=== PATIENT | female | born 1975 | race Caucasian/White ===

== ENCOUNTER 2017-03-19 05:24 | Outpatient (CLI) | payer MEDICAID ==
[~2017-03-19] VITALS: Ht 182.9 cm; Wt 127.5 kg
[~2017-03-19 05:24] MED LIST: ACHYD1T PO; AMOX500C2 PO; DCS100C PO; GLYB2.5T4 PO; IBP800T PO; LBT200T PO; NITR100C3 PO; PREN1TAB39 PO
[2017-03-19 05:27] VITALS: BP 163/78
[2017-03-19] MEDS ORDERED: METF500T4 PO ×2 (05:52)
[2017-03-19] MEDS ORDERED: METH250T PO ×2 (05:53)
[2017-03-19] MEDS ORDERED: PRD10T PO (07:24)
--- NOTE | 2017-03-20 12:18 | Physician Query-Final Dx ---
ARYAN GODINEZ 03/20/17 1218: Clinic Account Progress/Dx Physician Query: Please give diagnosis Date of Service Mar 19, 2017 at 05:24 CHERELLE SCRUGGS MD 03/21/17 0656: Clinic Account Progress/Dx DIAGNOSIS: Diagnosis hypersensitivity dermatitis ARYAN GODINEZ Mar 20, 2017 12:18 CHERELLE SCRUGGS MD Mar 21, 2017 06:56
[2017-03-20] MEDS ORDERED: PRD20T PO (12:59)
== END 2017-03-19 06:04 | disposition home or self-care (01) ==
LOC: WSo 05:24 → LDRP 05:26 → WSo 06:04
PROVIDERS: ATTEND Obstetrics & Gynecology
DX: O99.89 Other specified diseases and conditions complicating pregnancy, childbirth and the puerperium (principal); L30.9 Dermatitis, unspecified; Z3A.19 19 weeks gestation of pregnancy
CPT/HCPCS: 99212

== ENCOUNTER 2017-03-19 06:04 | Emergency (ER) | payer MEDICAID ==
[~2017-03-19] VITALS: Ht 182.9 cm; Wt 127.0 kg
[~2017-03-19 06:04] MED LIST changes: +METF500T4 PO; +METH250T PO
[2017-03-19] MEDS ORDERED: methylPREDNISolone 125 MG (Solu-MEDROL) VIAL IVP ONE (06:30)
[2017-03-19] MEDS ORDERED: diphenhydrAMINE 50 MG/ML INJ (BENADRYL) IVP ONE (06:30)
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
[2017-03-19 06:43] LABS: BASOPHILS % (AUTO) 0 % (0-10); EOSINOPHILS # (AUTO) 0.2 10^3/uL (0.0-0.3); EOSINOPHILS % (AUTO) 1 % (0-10); LYMPHOCYTES # (AUTO) 0.8 X 10^3 (1.0-4.0); LYMPHOCYTES % (AUTO) 5 % (12-44); MEAN CORPUSCULAR HEMOGLOBIN 23 PG (25-34); MEAN CORPUSCULAR HGB CONC 32 G/DL (32-36); MEAN CORPUSCULAR VOLUME 72 FL (80-99); MEAN PLATELET VOLUME 10.5 FL (7.4-10.4); MONOCYTES # (AUTO) 0.3 X 10^3 (0.0-1.0); MONOCYTES % (AUTO) 2 % (0-12); NEUTROPHILS # (AUTO) 14.3 X 10^3 (1.8-7.8); NEUTROPHILS % (AUTO) 92 % (42-75); PLATELET COUNT 472 10^3/uL (130-400); RED BLOOD COUNT 4.82 10^6/uL (4.35-5.85); RED CELL DISTRIBUTION WIDTH 17.5 % (10.0-14.5); WHITE BLOOD COUNT 15.6 10^3/uL (4.3-11.0)
[2017-03-19 07:11] LABS: ALANINE AMINOTRANSFERASE 13 U/L (0-55); ALBUMIN 3.2 GM/DL (3.2-4.5); ANION GAP 13 MMOL/L (5-14); ASPARTATE AMINO TRANSFERASE 15 U/L (5-34); BILIRUBIN,TOTAL 0.5 MG/DL (0.1-1.0); BLOOD UREA NITROGEN 9 MG/DL (7-18); BUN/CREATININE RATIO 12 (0-20); CALCIUM 8.4 MG/DL (8.5-10.1); CARBON DIOXIDE 18 MMOL/L (21-32); CHLORIDE 104 MMOL/L (98-107); CREATININE SERUM 0.77 MG/DL (0.60-1.30); GFR ESTIMATED > 60; GLUCOSE 158 MG/DL (70-105); SODIUM 135 MMOL/L (135-145); TOTAL PROTEIN 6.8 GM/DL (6.4-8.2)
[2017-03-19 07:24] LABS: BAND NEUTROPHILS 3 %; BASOPHILS % (MANUAL) 0 %; EOSINOPHILS % (MANUAL) 2 %; LYMPHOCYTES % (MANUAL) 6 %; NEUTROPHILS % (MANUAL) 88 %
[2017-03-19] MEDS ORDERED: PRD10T PO (07:24)
[2017-03-19 07:25] LABS: ANISOCYTOSIS SLIGHT; MICROCYTOSIS SLIGHT
[2017-03-19 07:27] VITALS: BP 150/85
[2017-03-20] MEDS ORDERED: PRD20T PO (12:59)
== END 2017-03-19 07:33 | disposition home or self-care (01) ==
LOC: EDUNIT# 06:08 → ER 06:10
DX: O99.89 Other specified diseases and conditions complicating pregnancy, childbirth and the puerperium (principal); R21 Rash and other nonspecific skin eruption; O13.2 Gestational [pregnancy-induced] hypertension without significant proteinuria, second trimester; O24.912 Unspecified diabetes mellitus in pregnancy, second trimester; Z3A.19 19 weeks gestation of pregnancy; Z79.84 Long term (current) use of oral hypoglycemic drugs
CPT/HCPCS: 36415; 80053; 85007; 85027; 96374; 96375

== ENCOUNTER 2017-03-20 10:31 | Emergency (ER) | payer MEDICAID ==
[~2017-03-20] VITALS: Ht 182.9 cm; Wt 127.1 kg
[~2017-03-20 10:31] MED LIST changes: +PRD10T PO
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
[2017-03-20] MEDS ORDERED: PRD20T PO (12:59)
[2017-03-20 13:05] VITALS: BP 145/80
== END 2017-03-20 13:05 | disposition home or self-care (01) ==
LOC: EDUNIT# 10:31 → ER 10:34
DX: O9A.212 Injury, poisoning and certain other consequences of external causes complicating pregnancy, second trimester (principal); S40.861A Insect bite (nonvenomous) of right upper arm, initial encounter; Z3A.20 20 weeks gestation of pregnancy; W57.XXXA Bitten or stung by nonvenomous insect and other nonvenomous arthropods, initial encounter
CPT/HCPCS: 87070; 87205; 99282

== ENCOUNTER 2017-04-22 17:44 | Inpatient (IN) | payer MEDICAID ==
[~2017-04-22] VITALS: Ht 182.9 cm; Wt 128.0 kg
[2017-04-22] VITALS (15 sets, daily range): BP systolic 155–230; BP diastolic 79–113
[~2017-04-22 17:44] MED LIST changes: +PRD20T PO
[2017-04-22] MEDS ORDERED: LABETALOL 200 MG (NORMODYNE) TAB PO NR (18:00)
[2017-04-22 18:27] LABS: BASOPHILS # (AUTO) 0.1 10^3/uL (0.0-0.1); BASOPHILS % (AUTO) 0 % (0-10); EOSINOPHILS # (AUTO) 0.1 10^3/uL (0.0-0.3); EOSINOPHILS % (AUTO) 1 % (0-10); LYMPHOCYTES # (AUTO) 2.1 X 10^3 (1.0-4.0); LYMPHOCYTES % (AUTO) 16 % (12-44); MEAN CORPUSCULAR HEMOGLOBIN 24 PG (25-34); MEAN CORPUSCULAR HGB CONC 32 G/DL (32-36); MEAN CORPUSCULAR VOLUME 74 FL (80-99); MEAN PLATELET VOLUME 10.6 FL (7.4-10.4); MONOCYTES # (AUTO) 0.9 X 10^3 (0.0-1.0); MONOCYTES % (AUTO) 6 % (0-12); NEUTROPHILS # (AUTO) 10.3 X 10^3 (1.8-7.8); NEUTROPHILS % (AUTO) 77 % (42-75); PLATELET COUNT 421 10^3/uL (130-400); RED CELL DISTRIBUTION WIDTH 18.1 % (10.0-14.5); WHITE BLOOD COUNT 13.4 10^3/uL (4.3-11.0)
[2017-04-22 18:39] LABS: PROTEIN/CREATININE RATIO 0.12
[2017-04-22 18:44] LABS: ALANINE AMINOTRANSFERASE 11 U/L (0-55); ANION GAP 9 MMOL/L (5-14); ASPARTATE AMINO TRANSFERASE 13 U/L (5-34); BILIRUBIN,TOTAL 0.3 MG/DL (0.1-1.0); BLOOD UREA NITROGEN 12 MG/DL (7-18); BUN/CREATININE RATIO 16; CALCIUM 9.1 MG/DL (8.5-10.1); CARBON DIOXIDE 22 MMOL/L (21-32); CHLORIDE 104 MMOL/L (98-107); CREATININE SERUM 0.75 MG/DL (0.60-1.30); GFR ESTIMATED > 60; GLUCOSE 100 MG/DL (70-105); LACTATE DEHYDROGENASE 134 U/L (125-220); SODIUM 135 MMOL/L (135-145); TOTAL PROTEIN 6.2 GM/DL (6.4-8.2); URIC ACID 4.6 MG/DL (2.6-7.2)
[2017-04-22] MEDS ORDERED: LABETALOL HCL 20 MG/4 ML VIAL IV ONE (19:00)
[2017-04-22] MEDS ORDERED: LABE100T2 PO (19:12)
[2017-04-22] MEDS ORDERED: METF500T4 PO (19:12)
[2017-04-22] MEDS ORDERED: LABETALOL IV SCH ×2 (20:00→20:30)
[2017-04-22] MEDS ORDERED: D5W IV SCH ×2 (20:00→20:30)
[2017-04-22] MEDS ORDERED: CATHETER FLUSH 10 ML SYR IV PRN (20:30)
[2017-04-22] MEDS: CATHETER FLUSH 10 ML SYR IV SCH (20:36)
[2017-04-22] MEDS ORDERED: hydrALAZINE (APESOLINE) 20 MG/ML VIAL ONE (21:26)
[2017-04-22] MEDS ORDERED: hydrALAZINE (APESOLINE) 20 MG/ML VIAL IV ONE (21:45)
--- NOTE | 2017-04-22 22:10 | History & Physical ---
History and Physical Date Seen by Provider: Apr 22, 2017 Time Seen by Provider: 21:56 this patient is a 41-year-old A1 LC 8 white female with an EDC of August 07 2017. she has a history of hypertension in the past as well as a history of preeclampsia with prior pregnancies. She has had 6 C-sections and total her is complicated by obesity as well as advanced maternal age as well as diabetes mellitus. She had an abnormal tetra test showing an increased DSR of 1 in 30. Amniocentesis performed on March 12, 2017 was normal. This patient has had elevation of her blood pressure in the past and began to feel that her blood pressure was elevated again. She recently bought a wrist blood pressure and call my office and reported a blood pressure of over 200 on systolic and over 100 diastolic. She was directed to labor and delivery. Blood pressure today or showed a markedly elevation. We had initially prescribed Aldomet for blood pressure control that seemed to have good effect however she complained of her reaction to the Aldomet and was changed into labetalol. Blood pressure has not been quite as effective with labetalol. I saw this patient on April 17, 2017 in my clinic. Her blood pressure there was 162/105. Her dose of labetalol at that point was 100 mg twice a day. The patient had indicated to me at that point that she sometimes took her blood pressure medication and sometimes she did not. When she felt that her blood pressure was not a problem for her she did not take her blood pressure medication. She did not approve that the dose of blood pressure medication that I had recommended and had been adjusting her own medication. At the point of this admission I am not sure what dose of blood pressure medications/ labetalol the patient has actually been taking and how often she has been taking it. It elevation of her blood pressure I requested a consult with cardiology for evaluation and management of her blood pressure. When apprised of the blood pressure the weeder thinner suggested transfer to the ICU for immediate attention to her markedly elevated blood pressure. The patient is currently 24 weeks and 5 days into her gestation. She has no specific obstetric problems at this moment other than her medical problems. In regard to her blood sugars she test them on her own schedule sort of as she feels she needs to. I have asked that she check blood sugars at least 2 hours after meals. She indicates to me that she does that some time. She has been on metformin was initially started at 5 mg twice a day on March 18, 2017. By April 17, 2017 we have changed to 500 mg 3 times a day. This evening the patient reports to me that her blood sugars 2 hours after meals are running persistently at our round or less than 100. Currently the patient is an ICU bed 12 under the care of Dr. Rubio - 4 blood pressure management. The patient is alert and oriented 4 she is smiling and responsive. She understands that her blood pressure is quite problematic at the moment. She denies rupture membranes or bleeding. She denies contractions. She does feel baby moving. 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 Medications include metformin which she indicates to me that she is taking 3 times a day at 500 mg as directed. Past medical history, past surgical history, past obstetric history, family history, and social histories are per the antepartum record which is on file with the OB department HEENT exam is normal. Abdomen is gravid soft nontender. Extremities show no clubbing or cyanosis. There is some mild pretibial pitting edema. This is somewhat improved actually from her prior exam Pelvic exam is deferred Lab work is as follows Laboratory Tests Test 04/22/17 18:15 04/22/17 18:19 Range/Units Urine Protein 32 H 6-12 MG/DL Urine Creatinine 269 H 30-125 MG/DL Urine Protein/Creatinine Ratio 0.12 White Blood Count 13.4 H 4.3-11.0 10^3/uL Red Blood Count 4.40 4.35-5.85 10^6/uL Hemoglobin 10.4 L 11.5-16.0 G/DL Hematocrit 33 L 35-52 % Mean Corpuscular Volume 74 L 80-99 FL Mean Corpuscular Hemoglobin 24 L 25-34 PG Mean Corpuscular Hemoglobin Concent 32 32-36 G/DL Red Cell Distribution Width 18.1 H 10.0-14.5 % Platelet Count 421 H 130-400 10^3/uL Mean Platelet Volume 10.6 H 7.4-10.4 FL Neutrophils (%) (Auto) 77 H 42-75 % Lymphocytes (%) (Auto) 16 12-44 % Monocytes (%) (Auto) 6 0-12 % Eosinophils (%) (Auto) 1 0-10 % Basophils (%) (Auto) 0 0-10 % Neutrophils # (Auto) 10.3 H 1.8-7.8 X 10^3 Lymphocytes # (Auto) 2.1 1.0-4.0 X 10^3 Monocytes # (Auto) 0.9 0.0-1.0 X 10^3 Eosinophils # (Auto) 0.1 0.0-0.3 10^3/uL Basophils # (Auto) 0.1 0.0-0.1 10^3/uL Sodium Level 135 135-145 MMOL/L Potassium Level 4.0 3.6-5.0 MMOL/L Chloride Level 104 98-107 MMOL/L Carbon Dioxide Level 22 21-32 MMOL/L Anion Gap 9 5-14 MMOL/L Blood Urea Nitrogen 12 7-18 MG/DL Creatinine 0.75 0.60-1.30 MG/DL Estimat Glomerular Filtration Rate > 60 BUN/Creatinine Ratio 16 Glucose Level 100 70-105 MG/DL Uric Acid 4.6 2.6-7.2 MG/DL Calcium Level 9.1 8.5-10.1 MG/DL Total Bilirubin 0.3 0.1-1.0 MG/DL Aspartate Amino Transf (AST/SGOT) 13 5-34 U/L Alanine Aminotransferase (ALT/SGPT) 11 0-55 U/L Alkaline Phosphatase 69 40-136 U/L Lactate Dehydrogenase 134 125-220 U/L Total Protein 6.2 L 6.4-8.2 GM/DL Albumin 3.0 L 3.2-4.5 GM/DL patient's lab work is reviewed and there is nothing that is of immediate concern patient had an NST and monitoring performed prior to transfer to labor and delivery and had had a reassuring tracing Vital Signs Date Time Temp Pulse Resp B/P (MAP) Pulse Ox O2 Delivery O2 Flow Rate FiO2 04/22/17 19:17 18 217/100 Room Air 04/22/17 18:56 18 230/106 Room Air 04/22/17 18:40 18 215/102 Room Air 04/22/17 17:50 98.6 63 18 214/98 Room Air Blood pressures are markedly elevated as noted here. - Dr. Rubio is aware and is providing medical management at this point assessment and plan 24-5/7 weeks gestation in a patient with uncontrolled hypertension and an uncertain degree of compliance with her prescribed antihypertensive medication - now under the care of our weeder thinner, Dr. Rubio , to whom I will defer all blood pressure management issues diabetes mellitus versus gestational diabetes. Patient blood sugars now appear to be significantly improved on the current regimen of metformin 500 mg 3 times a day. I would continue that medication. I would continue her regimen of fingerstick blood sugars. I would continue her diabetic diet. Patient has an unexplained abnormal tetra test and we will consult Dr. Pineda with whom this patient is already acquainted for evaluation and recommendations on management and delivery timing that can be accomplished as outpatient after discharge from [facility]. Patient knows she has an increased risk for complications specifically in regard to the abnormal unexplained tetra test. However her wrist with fairly markedly elevated due to her advanced maternal age, her diabetes, and her blood pressure. I will follow along now as Dr. Rubio effects improvement in her blood pressure. From an OB perspective I would continue the patient's diet as per her current diabetic regimen. As well as her metformin. I will continue her care and seek the assistance of Dr. Pineda. I am available if there are any questions or issues from an OB concern. We will monitor this patient's fetus daily I appreciate the assistance of Dr. Rubio in the management of this patient Uncontrolled hypertension Allergies and Home Medications Allergies Coded Allergies: codeine (Unverified Adverse Reaction, Mild, Headache, 05/21/07) Home Medications Labetalol HCl 100 Mg Tablet, 100 MG PO TID, (Reported) Metformin HCl 500 Mg Tablet, 500 MG PO TID, (Reported) CHERELLE SCRUGGS MD Apr 22, 2017 22:10
[2017-04-22] MEDS ORDERED: CALCIUM CARBONATE 500 MG (TUMS) TAB.CHEW PO PRN (22:30)
[2017-04-23] VITALS (23 sets, daily range): BP systolic 125–190; BP diastolic 72–112
[2017-04-23] MEDS: hydrALAZINE (APESOLINE) 20 MG/ML VIAL IV PRN ×2 (02:52→11:34)
[2017-04-23] MEDS ORDERED: ONDANSETRON 4 MG/2 ML (SDV) Z0FRAN ONE (03:33)
[2017-04-23] MEDS ORDERED: ACETAMINOPHEN 325 MG TABLET/CAPLET (TYLENOL) ONE (03:33)
[2017-04-23 04:06] LABS: BASOPHILS # (AUTO) 0.1 10^3/uL (0.0-0.1); BASOPHILS % (AUTO) 1 % (0-10); EOSINOPHILS # (AUTO) 0.1 10^3/uL (0.0-0.3); EOSINOPHILS % (AUTO) 1 % (0-10); LYMPHOCYTES # (AUTO) 2.5 X 10^3 (1.0-4.0); LYMPHOCYTES % (AUTO) 20 % (12-44); MEAN CORPUSCULAR HEMOGLOBIN 24 PG (25-34); MEAN CORPUSCULAR HGB CONC 32 G/DL (32-36); MEAN CORPUSCULAR VOLUME 74 FL (80-99); MEAN PLATELET VOLUME 10.8 FL (7.4-10.4); MONOCYTES # (AUTO) 0.7 X 10^3 (0.0-1.0); MONOCYTES % (AUTO) 5 % (0-12); NEUTROPHILS # (AUTO) 9.2 X 10^3 (1.8-7.8); NEUTROPHILS % (AUTO) 74 % (42-75); PLATELET COUNT 449 10^3/uL (130-400); RED BLOOD COUNT 4.72 10^6/uL (4.35-5.85); RED CELL DISTRIBUTION WIDTH 18.3 % (10.0-14.5); WHITE BLOOD COUNT 12.5 10^3/uL (4.3-11.0)
[2017-04-23 04:27] LABS: ANION GAP 14 MMOL/L (5-14); BLOOD UREA NITROGEN 11 MG/DL (7-18); BUN/CREATININE RATIO 14; CALCIUM 8.6 MG/DL (8.5-10.1); CARBON DIOXIDE 15 MMOL/L (21-32); CHLORIDE 104 MMOL/L (98-107); CREATININE SERUM 0.76 MG/DL (0.60-1.30); GFR ESTIMATED > 60; GLUCOSE 126 MG/DL (70-105); MAGNESIUM 1.4 MG/DL (1.8-2.4); PHOSPHORUS 3.8 MG/DL (2.3-4.7); POTASSIUM 3.9 MMOL/L (3.6-5.0); SODIUM 133 MMOL/L (135-145)
[2017-04-23] MEDS: MAGNESIUM 1 GM/100 ML IVPB 100 ML IV SCH ×3 (04:30→06:34)
[2017-04-23] MEDS: POTASSIUM CL 10MEQ/50ML IVPB 50 ML IV SCH (04:31)
[2017-04-23] MEDS: KCL 20 MEQ TAB (K-DUR) PO SCH (04:31)
[2017-04-23] MEDS: CATHETER FLUSH 10 ML SYR IV SCH ×3 (05:21→21:15)
--- NOTE | 2017-04-23 07:41 | Progress Note-Standard ---
Standard Progress Note Progress Notes/Assess & Plan Date Seen by Provider: Apr 23, 2017 Time Seen by Provider: 07:38 Progress/Assessment & Plan patient is without complaint. Her headache is improved with her blood pressures decreased. She denies nausea. Denies shortness of breath. Patient reports feeling baby moving and denies contractions. She denies ruptured membranes or bleeding. Vital Signs Date Time Temp Pulse Resp B/P (MAP) Pulse Ox O2 Delivery O2 Flow Rate FiO2 04/23/17 06:00 71 12 156/89 98 Room Air 04/23/17 05:00 65 19 172/92 97 Room Air 04/23/17 04:00 98.9 04/23/17 04:00 Room Air 04/23/17 04:00 76 20 147/87 97 Room Air 04/23/17 03:00 79 10 166/90 98 Room Air 04/23/17 02:00 60 21 144/75 97 Room Air 04/23/17 01:00 66 04/23/17 01:00 74 17 163/91 99 Room Air 04/23/17 00:00 74 14 145/88 98 04/23/17 00:00 Room Air 04/22/17 23:00 89 10 155/79 98 04/22/17 22:00 73 13 168/99 98 Room Air 04/22/17 21:45 77 24 159/88 98 Room Air 04/22/17 21:30 59 17 196/108 99 Room Air 04/22/17 21:15 62 11 202/107 98 Room Air 04/22/17 21:00 57 19 205/102 99 Room Air 04/22/17 20:45 58 10 201/104 99 Room Air 04/22/17 20:30 62 17 215/113 99 Room Air 04/22/17 20:15 56 8 213/108 100 Room Air 04/22/17 20:00 59 11 210/107 99 Room Air 04/22/17 20:00 Room Air 04/22/17 19:45 51 17 208/104 99 Room Air 04/22/17 19:17 18 217/100 Room Air 04/22/17 18:56 18 230/106 Room Air 04/22/17 18:40 18 215/102 Room Air 04/22/17 17:50 98.6 63 18 214/98 Room Air I & O 04/23/17 07:00 Intake Total 1400 ml Output Total 5 ml Balance 1395 ml pressures are still a bit labile but markedly improved. Abdomen is gravid soft nontender. Extremities show no clubbing or cyanosis. There is some pretibial pitting edema. There is no Homans sign. assessment and plan 24-6/7 weeks' gestation with severe hypertension - pressures are improving with the current care. No specific obstetric problems at this time. continue current management CHERELLE SCRUGGS MD Apr 23, 2017 7:41 am
[2017-04-23] MEDS: ASPIRIN 81 MG CHEW (CHILDREN'S ASA) PO SCH (08:33)
[2017-04-23] MEDS: metFORMIN 500 MG (GLUCOPHAGE) TAB PO SCH ×3 (08:59→21:50)
[2017-04-23] MEDS: PRENATAL VITAMIN 1 EA TAB PO SCH (08:59)
[2017-04-23] MEDS ORDERED: LABETALOL 200 MG (NORMODYNE) TAB PO SCH (09:00)
--- NOTE | 2017-04-23 10:56 | Consultation-Cardiology ---
HPI-Cardiology Cardiology Consultation: Date of Consultation 04/23/17 Date of Admission Attending Physician Vipul Rubio MD Admitting Physician Blayne Rosenberg MD Consulting Physician Vipul RUBIO MD HPI: Time Seen by Provider: 09:30 Chief Complaint: Headache and elevated blood pressure This is a 41-year-old lady who is 24 weeks . She has previous history of gestational diabetes and hypertension during pregnancies. She was started on labetalol as an outpatient. However the patient was noncompliant with medications. She presented with systolic blood pressure of 215 mmHg. She was in initially admitted to the floor and by mouth labetalol was given. There was no significant change in blood pressure therefore was transferred to the ICU. She was complaining of headache. When I saw her in the morning she was not complaining of headache anymore. Review of Systems-Cardiology Review of Systems Constitutional: No As described under HPI, No no symptoms reported, No chills, No fever, No lightheadedness, No malaise, No tiredness, No weight loss, No weight gain, No other Eyes: No As described under HPI, No no symptoms reported, No blindness, No blurred vision, No contact lenses, No drainage, No decreased acuity, No foreign body sensation, No glasses, No inflammation, No pain, No photophobia, No previous injury, No shadows, No tunnel vision, No other, No vision change Ears/Nose/Throat: No As described under HPI, No no symptoms reported, No chronic hearing loss, No epistaxis, No ear discharge, No ear pain, No loose teeth, No mouth pain, No mouth swelling, No nasal drainage, No nose pain, No recent hearing loss, No throat pain, No throat swelling, No ulcerations, No other Respiratory: No no symptoms reported, No As described under HPI, No cough, No orthopnea, No shortness of breath, No SOB with excertion, No SOB at rest, No stridor, No wheezing, No other Cardiovascular: No no symptoms reported, No As described under HPI, No chest pain, No edema, No irregular heart rate, No lightheadedness, No palpitations, No syncope, No other Gastrointestinal: No no symptoms reported, No As described under HPI, No abdomen distended, No abdominal pain, No blood streaked bowels, No constipation , No diarrhea, No difficulty swallowing, No nausea, No poor appetite, No poor fluid intake, No rectal bleeding, No vomiting, No other, No nausea/vomiting/ diarrhea, No stool coloration changes Genitourinary: No no symptoms reported, No As described under HPI, No burning, No dysuria, No discharge, No frequency, No flank pain, No hematuria, No incontinence, No pain, No urgency, No other, No urine frequency changes, No urine coloration changes Expected Date of Delivery: Aug 07, 2017 Musculoskeletal: No no symptoms reported, No As describe under HPI, No back pain, No gout, No joint pain, No joint swelling, No muscle pain, No muscle stiffness, No neck pain, No other Skin: No no symptoms reported, No As described under HPI, No change in color, No change in hair/nails, No dryness, No lesions, No lumps, No rash, No other, No skin related problems, No ulcerations, No rash on exposed areas, No ulcerations on exposed areas Psychiatric/Neurological: headache Hematologic: No no symptoms reported, No As described under HPI, No anemia, No blood clots, No easy bleeding, No easy bruising, No swollen glands, No other, No bleeding abnormalities [id number] Hx Patient Social History 2nd Hand Smoke Exposure: No Recent Foreign Travel: No Recent Infectious Disease Expo: No Physical Abuse Screen: No Sexual Abuse: No Immunizations Up To Date Tetanus Booster (TDap): Less than 5yrs Past Medical History PMH As described under Assessment. Allergies and Home Medications Allergies Coded Allergies: codeine (Unverified Adverse Reaction, Mild, Headache, 05/21/07) Home Medications Labetalol HCl 100 Mg Tablet, 100 MG PO TID, (Reported) Metformin HCl 500 Mg Tablet, 500 MG PO TID, (Reported) Physical Exam-Cardiology Physical Exam Vital Signs/I&O Vital Sign - Last 12Hours 04/23/17 04/23/17 04/23/17 04/23/17 02:00 03:00 04:00 04:00 Pulse 60 79 76 Resp 21 10 20 B/P (MAP) 144/75 166/90 147/87 Pulse Ox 97 98 97 O2 Delivery Room Air Room Air Room Air Room Air 04/23/17 04/23/17 04/23/17 04/23/17 04:00 05:00 06:00 07:00 Temp 98.9 Pulse 65 71 68 Resp 19 12 B/P (MAP) 172/92 156/89 Pulse Ox 97 98 O2 Delivery Room Air Room Air 04/23/17 04/23/17 08:00 12:55 Temp 97.6 98.1 Capillary Refill : Constitutional: No appears stated age, No AAO x 3, No apparent distress, No PERRL, No well-developed, No well-nourished, No other HEENT: No PERRL, No normal ENT inspection, No TMs normal, No pharynx normal, No scleral icterus (R), No scleral icterus (L), No pale conjunctivae (R), No pale conjunctivae (L), No photophobia, No TM abnormal (R), No TM abnormal (L), No pharyngeal erythema, No tonsillar exudate, No other, No discharge, No EOMI, No hearing is well preserved, No hard of hearing, No oral hygience is good, No ulceration, No xanthelasmas are seen Neck: No non-tender, No full range of motion, No supple, No normal inspection, No carotid bruit, No limited range of motion, No lymphadenopathy (R), No lymphadenopathy (L), No tender lateral, No tender midline, No thyromegaly, No other, No carotid pulses are 2 + bilaterally, No with good upstrokes Respiratory: No accessory muscle use, No respiratory distress, No chest tender , No chest expansion is symmetric, No chest is bilaterally symmetric, No lungs clear to percussion, No lungs clear to auscultation, No crackles, No rhonchi, No rales, No stridor, No wheezing, No pleural rub, No other Cardiovascular: No regular rate-rhythm, No irregularly irregular, No extra beats, No parasternal heave is noted, No JVD, No edema, No bradycardia, No tachycardia, No point of maximal impulse, No cardiac thrills are palpable, No S1 and S2, No gallop/S3, No gallop/S4, No diastolic murmur, No systolic murmur, No friction rub, No click, No other Gastrointestinal: No tender, No soft, No round, No distended, No pulsatile mass , No organomegaly, No guarding, No rebound, No tenderness, No hernia, No mass, No audible bowel sounds, No abnormal bowel sounds, No abdominal bruits, No spleenomegaly, No other Rectal: deferred Extremities: No clubbing, No cyanosis, No significant edema Neurologic/Psychiatric: alert, oriented x 3, power is 5/5 both on sides Skin: No normal color, No warm/dry, No cyanosis, No cool, No diaphoresis, No damp, No ecchymosis, No jaundice, No mottled, No pallor, No rash, No tattoos/ piercings, No ulcerations, No rash on exposed areas, No ulcerations on exposed areas, No other Data Review Labs Laboratory Tests 04/22/17 18:15: Urine Protein 32H, Urine Creatinine 269H, Urine Protein/Creatinine Ratio 0.12 04/22/17 18:19: White Blood Count 13.4H, Red Blood Count 4.40, Hemoglobin 10.4L, Hematocrit 33L , Mean Corpuscular Volume 74L, Mean Corpuscular Hemoglobin 24L, Mean Corpuscular Hemoglobin Concent 32, Red Cell Distribution Width 18.1H, Platelet Count 421H, Mean Platelet Volume 10.6H, Neutrophils (%) (Auto) 77H, Lymphocytes (%) (Auto) 16, Monocytes (%) (Auto) 6, Eosinophils (%) (Auto) 1, Basophils (%) ( Auto) 0, Neutrophils # (Auto) 10.3H, Lymphocytes # (Auto) 2.1, Monocytes # (Auto ) 0.9, Eosinophils # (Auto) 0.1, Basophils # (Auto) 0.1, Sodium Level 135, Potassium Level 4.0, Chloride Level 104, Carbon Dioxide Level 22, Anion Gap 9, Blood Urea Nitrogen 12, Creatinine 0.75, Estimat Glomerular Filtration Rate > 60 , BUN/Creatinine Ratio 16, Glucose Level 100, Uric Acid 4.6, Calcium Level 9.1, Total Bilirubin 0.3, Aspartate Amino Transf (AST/SGOT) 13, Alanine Aminotransferase (ALT/SGPT) 11, Alkaline Phosphatase 69, Lactate Dehydrogenase 134, Total Protein 6.2L, Albumin 3.0L 04/23/17 03:51: White Blood Count 12.5H, Red Blood Count 4.72, Hemoglobin 11.2L, Hematocrit 35, Mean Corpuscular Volume 74L, Mean Corpuscular Hemoglobin 24L, Mean Corpuscular Hemoglobin Concent 32, Red Cell Distribution Width 18.3H, Platelet Count 449H, Mean Platelet Volume 10.8H, Neutrophils (%) (Auto) 74, Lymphocytes (%) (Auto) 20 , Monocytes (%) (Auto) 5, Eosinophils (%) (Auto) 1, Basophils (%) (Auto) 1, Neutrophils # (Auto) 9.2H, Lymphocytes # (Auto) 2.5, Monocytes # (Auto) 0.7, Eosinophils # (Auto) 0.1, Basophils # (Auto) 0.1, Sodium Level 133L, Potassium Level 3.9, Chloride Level 104, Carbon Dioxide Level 15L, Anion Gap 14, Blood Urea Nitrogen 11, Creatinine 0.76, Estimat Glomerular Filtration Rate > 60, BUN/ Creatinine Ratio 14, Glucose Level 126H, Calcium Level 8.6, Phosphorus Level 3.8 , Magnesium Level 1.4L A/P-Cardiology Assessment/Admission Diagnosis Severe hypertension, Plan Overnight was started on labetalol infusion. Hydralazine boluses were given by eICU. Transition to by mouth labetalol this morning. We will avoid hydralazine. Increase labetalol to 400 mg 3 times a day. We may add Aldomet to the regimen. Compliance with medication was strongly recommended. Salt restriction was also recommended. She seems to have a good understanding of the risks associated with severe hypertension. Thank you for your consultation. Please call me if you have any questions. Hermann Rubio MD, FACP, FACC, FSCAI, FHRS, CCDS Interventional Cardiology Cardiac Electrophysiology Vascular Medicine and Endovascular Interventions Vipul RUBIO MD Apr 23, 2017 10:56
[2017-04-23] MEDS: LABETALOL 200 MG (NORMODYNE) TAB PO SCH ×3 (12:53→21:50)
[2017-04-23] MEDS: NIFEdipine ER 60 MG (PROCARDIA XL) TAB PO SCH (17:36)
[2017-04-23] MEDS ORDERED: LABETALOL 200 MG (NORMODYNE) TAB PO ONE (22:45)
--- NOTE | 2017-04-23 23:43 | Progress Note-Standard ---
Standard Progress Note Progress Notes/Assess & Plan Date Seen by Provider: Apr 23, 2017 Time Seen by Provider: 23:36 Progress/Assessment & Plan patient is without complaint. Her headache is improved with her blood pressures decreased. She denies nausea. Denies shortness of breath. Patient reports feeling baby moving and denies contractions. She denies ruptured membranes or bleeding. Vital Signs Date Time Temp Pulse Resp B/P (MAP) Pulse Ox O2 Delivery O2 Flow Rate FiO2 04/23/17 06:00 71 12 156/89 98 Room Air 04/23/17 05:00 65 19 172/92 97 Room Air 04/23/17 04:00 98.9 04/23/17 04:00 Room Air 04/23/17 04:00 76 20 147/87 97 Room Air 04/23/17 03:00 79 10 166/90 98 Room Air 04/23/17 02:00 60 21 144/75 97 Room Air 04/23/17 01:00 66 04/23/17 01:00 74 17 163/91 99 Room Air 04/23/17 00:00 74 14 145/88 98 04/23/17 00:00 Room Air 04/22/17 23:00 89 10 155/79 98 04/22/17 22:00 73 13 168/99 98 Room Air 04/22/17 21:45 77 24 159/88 98 Room Air 04/22/17 21:30 59 17 196/108 99 Room Air 04/22/17 21:15 62 11 202/107 98 Room Air 04/22/17 21:00 57 19 205/102 99 Room Air 04/22/17 20:45 58 10 201/104 99 Room Air 04/22/17 20:30 62 17 215/113 99 Room Air 04/22/17 20:15 56 8 213/108 100 Room Air 04/22/17 20:00 59 11 210/107 99 Room Air 04/22/17 20:00 Room Air 04/22/17 19:45 51 17 208/104 99 Room Air 04/22/17 19:17 18 217/100 Room Air 04/22/17 18:56 18 230/106 Room Air 04/22/17 18:40 18 215/102 Room Air 04/22/17 17:50 98.6 63 18 214/98 Room Air I & O 04/23/17 07:00 Intake Total 1400 ml Output Total 5 ml Balance 1395 ml pressures are still a bit labile but markedly improved. Abdomen is gravid soft nontender. Extremities show no clubbing or cyanosis. There is some pretibial pitting edema. There is no Homans sign. assessment and plan 24-6/7 weeks' gestation with severe hypertension - pressures are improving with the current care. No specific obstetric problems at this time. continue current management April 23, 2017 Patient complains of persistent but somewhat episodic headache. She denies ruptured membranes or bleeding. Complains of episodic gastritis/heartburn. She denies contractions. She expresses concern about having her blood pressure get to low with the medication she is being given. We had a lengthy discussion regarding blood pressure management the patient now does understand that the medication she received now in the form of labetalol is expected to have a control and affect her blood pressure over the next 6-8 hours rather than an immediate impact. She has received other medications during this hospitalization for a more prompt/immediate. When her blood pressures are in a more acceptable range as in the 140s to 160s over 90 to 110 she is not receiving the immediate acting blood pressure medicines. She still needs to maintain compliance with her ongoing daily antihypertensive medication in order to gain adequate control of her blood pressure. Again we discussed this issue at some length and in some detail. Vital Signs Date Time Temp Pulse Resp B/P (MAP) Pulse Ox O2 Delivery O2 Flow Rate FiO2 04/23/17 23:00 71 16 156/85 96 Room Air 04/23/17 22:00 80 30 131/72 96 Room Air 04/23/17 21:00 64 19 146/84 Room Air 04/23/17 20:00 Room Air 04/23/17 20:00 68 16 125/75 Room Air 04/23/17 19:00 75 12 132/77 Room Air 04/23/17 19:00 71 04/23/17 18:00 72 13 150/90 98 Room Air 04/23/17 17:00 73 18 163/94 96 Room Air 04/23/17 16:00 Room Air 04/23/17 16:00 55 16 171/92 97 Room Air 04/23/17 15:00 58 15 136/83 97 Room Air 04/23/17 14:00 69 18 155/85 97 Room Air 04/23/17 13:00 73 20 136/74 97 Room Air 04/23/17 13:00 74 04/23/17 12:55 98.1 04/23/17 12:00 Room Air 04/23/17 11:00 61 12 168/89 98 Room Air 04/23/17 10:00 63 7 190/109 99 Room Air 04/23/17 09:00 62 19 177/112 97 Room Air 04/23/17 08:00 64 11 147/81 98 Room Air 04/23/17 08:00 Room Air 04/23/17 08:00 97.6 04/23/17 07:00 63 20 155/86 96 Room Air 04/23/17 07:00 68 04/23/17 06:00 71 12 156/89 98 Room Air 04/23/17 05:00 65 19 172/92 97 Room Air 04/23/17 04:00 98.9 04/23/17 04:00 Room Air 04/23/17 04:00 76 20 147/87 97 Room Air 04/23/17 03:00 79 10 166/90 98 Room Air 04/23/17 02:00 60 21 144/75 97 Room Air 04/23/17 01:00 66 04/23/17 01:00 74 17 163/91 99 Room Air 04/23/17 00:00 74 14 145/88 98 04/23/17 00:00 Room Air I & O 04/23/17 07:00 Intake Total 1400 ml Output Total 5 ml Balance 1395 ml Blood pressures remained somewhat widely labile. otherwise vitals are reassuring Laboratory Tests Test 04/23/17 03:51 Range/Units White Blood Count 12.5 H 4.3-11.0 10^3/uL Red Blood Count 4.72 4.35-5.85 10^6/uL Hemoglobin 11.2 L 11.5-16.0 G/DL Hematocrit 35 35-52 % Mean Corpuscular Volume 74 L 80-99 FL Mean Corpuscular Hemoglobin 24 L 25-34 PG Mean Corpuscular Hemoglobin Concent 32 32-36 G/DL Red Cell Distribution Width 18.3 H 10.0-14.5 % Platelet Count 449 H 130-400 10^3/uL Mean Platelet Volume 10.8 H 7.4-10.4 FL Neutrophils (%) (Auto) 74 42-75 % Lymphocytes (%) (Auto) 20 12-44 % Monocytes (%) (Auto) 5 0-12 % Eosinophils (%) (Auto) 1 0-10 % Basophils (%) (Auto) 1 0-10 % Neutrophils # (Auto) 9.2 H 1.8-7.8 X 10^3 Lymphocytes # (Auto) 2.5 1.0-4.0 X 10^3 Monocytes # (Auto) 0.7 0.0-1.0 X 10^3 Eosinophils # (Auto) 0.1 0.0-0.3 10^3/uL Basophils # (Auto) 0.1 0.0-0.1 10^3/uL Sodium Level 133 L 135-145 MMOL/L Potassium Level 3.9 3.6-5.0 MMOL/L Chloride Level 104 98-107 MMOL/L Carbon Dioxide Level 15 L 21-32 MMOL/L Anion Gap 14 5-14 MMOL/L Blood Urea Nitrogen 11 7-18 MG/DL Creatinine 0.76 0.60-1.30 MG/DL Estimat Glomerular Filtration Rate > 60 BUN/Creatinine Ratio 14 Glucose Level 126 H 70-105 MG/DL Calcium Level 8.6 8.5-10.1 MG/DL Phosphorus Level 3.8 2.3-4.7 MG/DL Magnesium Level 1.4 L 1.8-2.4 MG/DL Laboratory Tests 04/23/17 03:51 abdomen is gravid nontender. Extremities show no clubbing or cyanosis. There is no Homans sign. Assessment and plan severe hypertension at just under 25 weeks gestation. Blood pressures are remaining somewhat labile but are improving under Dr. Rubio. Management of the blood pressures deferred to Dr. Rubio. Patient reports that her fingerstick blood sugars and 2 hours postprandial have all been under 120 and have generally been less than 105 or 100 which is well within the desired range. We will continue her metformin 500 mg 3 times a day. Patient complains of some gastritis/peptic ulcer symptoms will ahead and add Prilosec to take when necessary. Plan Tylenol for headaches. Patient complains of occasional nausea we will add oral Zofran as well. Otherwise continue current management with medical management per Dr. Clement. continue with daily NST. we'll consider for discharge home when Dr. Rubio has established satisfactory blood pressure control. CHERELLE SCRUGGS MD 19, 2017 11:43 pm
[2017-04-23] MEDS ORDERED: FAMOTIDINE 20 MG (PEPCID) TABLET PO PRN (23:45)
[2017-04-23] MEDS ORDERED: ONDANSETRON 8 MG (ZOFRAN) ORAL DISSOLVE TAB PO PRN (23:45)
[2017-04-23] MEDS ORDERED: ACETAMINOPHEN 500 MG TAB (TYLENOL) PO PRN (23:45)
[2017-04-24] VITALS (20 sets, daily range): BP systolic 114–169; BP diastolic 67–95
[2017-04-24 04:43] LABS: BASOPHILS % (AUTO) 0 % (0-10); EOSINOPHILS # (AUTO) 0.2 10^3/uL (0.0-0.3); EOSINOPHILS % (AUTO) 1 % (0-10); LYMPHOCYTES # (AUTO) 2.4 X 10^3 (1.0-4.0); LYMPHOCYTES % (AUTO) 17 % (12-44); MEAN CORPUSCULAR HEMOGLOBIN 24 PG (25-34); MEAN CORPUSCULAR HGB CONC 32 G/DL (32-36); MEAN CORPUSCULAR VOLUME 74 FL (80-99); MONOCYTES # (AUTO) 0.9 X 10^3 (0.0-1.0); MONOCYTES % (AUTO) 7 % (0-12); NEUTROPHILS # (AUTO) 10.5 X 10^3 (1.8-7.8); NEUTROPHILS % (AUTO) 75 % (42-75); PLATELET COUNT 448 10^3/uL (130-400); RED BLOOD COUNT 4.37 10^6/uL (4.35-5.85); RED CELL DISTRIBUTION WIDTH 18.4 % (10.0-14.5)
[2017-04-24 04:58] LABS: ANION GAP 11 MMOL/L (5-14); BLOOD UREA NITROGEN 11 MG/DL (7-18); BUN/CREATININE RATIO 15; CALCIUM 8.6 MG/DL (8.5-10.1); CARBON DIOXIDE 17 MMOL/L (21-32); CHLORIDE 107 MMOL/L (98-107); CREATININE SERUM 0.73 MG/DL (0.60-1.30); GFR ESTIMATED > 60; GLUCOSE 81 MG/DL (70-105); MAGNESIUM 1.7 MG/DL (1.8-2.4); PHOSPHORUS 4.4 MG/DL (2.3-4.7); POTASSIUM 3.9 MMOL/L (3.6-5.0); SODIUM 135 MMOL/L (135-145)
[2017-04-24] MEDS: KCL 20 MEQ TAB (K-DUR) PO SCH (05:26)
[2017-04-24] MEDS: POTASSIUM CL 10MEQ/50ML IVPB 50 ML IV SCH (05:26)
[2017-04-24] MEDS: CATHETER FLUSH 10 ML SYR IV SCH ×2 (06:40→14:25)
[2017-04-24] MEDS: MAGNESIUM 1 GM/100 ML IVPB 100 ML IV SCH (08:23)
[2017-04-24] MEDS: NIFEdipine ER 60 MG (PROCARDIA XL) TAB PO SCH (08:29)
[2017-04-24] MEDS: PRENATAL VITAMIN 1 EA TAB PO SCH (08:29)
[2017-04-24] MEDS: LABETALOL 200 MG (NORMODYNE) TAB PO SCH (08:30)
[2017-04-24] MEDS: ASPIRIN 81 MG CHEW (CHILDREN'S ASA) PO SCH (08:30)
[2017-04-24] MEDS: metFORMIN 500 MG (GLUCOPHAGE) TAB PO SCH ×2 (08:30→12:58)
--- NOTE | 2017-04-24 11:48 | Progress Note-Standard ---
Standard Progress Note Progress Notes/Assess & Plan Date Seen by Provider: Apr 24, 2017 Time Seen by Provider: 07:50 Progress/Assessment & Plan patient is without complaint. Her headache is improved with her blood pressures decreased. She denies nausea. Denies shortness of breath. Patient reports feeling baby moving and denies contractions. She denies ruptured membranes or bleeding. Vital Signs Date Time Temp Pulse Resp B/P (MAP) Pulse Ox O2 Delivery O2 Flow Rate FiO2 04/23/17 06:00 71 12 156/89 98 Room Air 04/23/17 05:00 65 19 172/92 97 Room Air 04/23/17 04:00 98.9 04/23/17 04:00 Room Air 04/23/17 04:00 76 20 147/87 97 Room Air 04/23/17 03:00 79 10 166/90 98 Room Air 04/23/17 02:00 60 21 144/75 97 Room Air 04/23/17 01:00 66 04/23/17 01:00 74 17 163/91 99 Room Air 04/23/17 00:00 74 14 145/88 98 04/23/17 00:00 Room Air 04/22/17 23:00 89 10 155/79 98 04/22/17 22:00 73 13 168/99 98 Room Air 04/22/17 21:45 77 24 159/88 98 Room Air 04/22/17 21:30 59 17 196/108 99 Room Air 04/22/17 21:15 62 11 202/107 98 Room Air 04/22/17 21:00 57 19 205/102 99 Room Air 04/22/17 20:45 58 10 201/104 99 Room Air 04/22/17 20:30 62 17 215/113 99 Room Air 04/22/17 20:15 56 8 213/108 100 Room Air 04/22/17 20:00 59 11 210/107 99 Room Air 04/22/17 20:00 Room Air 04/22/17 19:45 51 17 208/104 99 Room Air 04/22/17 19:17 18 217/100 Room Air 04/22/17 18:56 18 230/106 Room Air 04/22/17 18:40 18 215/102 Room Air 04/22/17 17:50 98.6 63 18 214/98 Room Air I & O 04/23/17 07:00 Intake Total 1400 ml Output Total 5 ml Balance 1395 ml pressures are still a bit labile but markedly improved. Abdomen is gravid soft nontender. Extremities show no clubbing or cyanosis. There is some pretibial pitting edema. There is no Homans sign. assessment and plan 24-6/7 weeks' gestation with severe hypertension - pressures are improving with the current care. No specific obstetric problems at this time. continue current management April 23, 2017 Patient complains of persistent but somewhat episodic headache. She denies ruptured membranes or bleeding. Complains of episodic gastritis/heartburn. She denies contractions. She expresses concern about having her blood pressure get to low with the medication she is being given. We had a lengthy discussion regarding blood pressure management the patient now does understand that the medication she received now in the form of labetalol is expected to have a control and affect her blood pressure over the next 6-8 hours rather than an immediate impact. She has received other medications during this hospitalization for a more prompt/immediate. When her blood pressures are in a more acceptable range as in the 140s to 160s over 90 to 110 she is not receiving the immediate acting blood pressure medicines. She still needs to maintain compliance with her ongoing daily antihypertensive medication in order to gain adequate control of her blood pressure. Again we discussed this issue at some length and in some detail. Vital Signs Date Time Temp Pulse Resp B/P (MAP) Pulse Ox O2 Delivery O2 Flow Rate FiO2 04/23/17 23:00 71 16 156/85 96 Room Air 04/23/17 22:00 80 30 131/72 96 Room Air 04/23/17 21:00 64 19 146/84 Room Air 04/23/17 20:00 Room Air 04/23/17 20:00 68 16 125/75 Room Air 04/23/17 19:00 75 12 132/77 Room Air 04/23/17 19:00 71 04/23/17 18:00 72 13 150/90 98 Room Air 04/23/17 17:00 73 18 163/94 96 Room Air 04/23/17 16:00 Room Air 04/23/17 16:00 55 16 171/92 97 Room Air 04/23/17 15:00 58 15 136/83 97 Room Air 04/23/17 14:00 69 18 155/85 97 Room Air 04/23/17 13:00 73 20 136/74 97 Room Air 04/23/17 13:00 74 04/23/17 12:55 98.1 04/23/17 12:00 Room Air 04/23/17 11:00 61 12 168/89 98 Room Air 04/23/17 10:00 63 7 190/109 99 Room Air 04/23/17 09:00 62 19 177/112 97 Room Air 04/23/17 08:00 64 11 147/81 98 Room Air 04/23/17 08:00 Room Air 04/23/17 08:00 97.6 04/23/17 07:00 63 20 155/86 96 Room Air 04/23/17 07:00 68 04/23/17 06:00 71 12 156/89 98 Room Air 04/23/17 05:00 65 19 172/92 97 Room Air 04/23/17 04:00 98.9 04/23/17 04:00 Room Air 04/23/17 04:00 76 20 147/87 97 Room Air 04/23/17 03:00 79 10 166/90 98 Room Air 04/23/17 02:00 60 21 144/75 97 Room Air 04/23/17 01:00 66 04/23/17 01:00 74 17 163/91 99 Room Air 04/23/17 00:00 74 14 145/88 98 04/23/17 00:00 Room Air I & O 04/23/17 07:00 Intake Total 1400 ml Output Total 5 ml Balance 1395 ml Blood pressures remained somewhat widely labile. otherwise vitals are reassuring Laboratory Tests Test 04/23/17 03:51 Range/Units White Blood Count 12.5 H 4.3-11.0 10^3/uL Red Blood Count 4.72 4.35-5.85 10^6/uL Hemoglobin 11.2 L 11.5-16.0 G/DL Hematocrit 35 35-52 % Mean Corpuscular Volume 74 L 80-99 FL Mean Corpuscular Hemoglobin 24 L 25-34 PG Mean Corpuscular Hemoglobin Concent 32 32-36 G/DL Red Cell Distribution Width 18.3 H 10.0-14.5 % Platelet Count 449 H 130-400 10^3/uL Mean Platelet Volume 10.8 H 7.4-10.4 FL Neutrophils (%) (Auto) 74 42-75 % Lymphocytes (%) (Auto) 20 12-44 % Monocytes (%) (Auto) 5 0-12 % Eosinophils (%) (Auto) 1 0-10 % Basophils (%) (Auto) 1 0-10 % Neutrophils # (Auto) 9.2 H 1.8-7.8 X 10^3 Lymphocytes # (Auto) 2.5 1.0-4.0 X 10^3 Monocytes # (Auto) 0.7 0.0-1.0 X 10^3 Eosinophils # (Auto) 0.1 0.0-0.3 10^3/uL Basophils # (Auto) 0.1 0.0-0.1 10^3/uL Sodium Level 133 L 135-145 MMOL/L Potassium Level 3.9 3.6-5.0 MMOL/L Chloride Level 104 98-107 MMOL/L Carbon Dioxide Level 15 L 21-32 MMOL/L Anion Gap 14 5-14 MMOL/L Blood Urea Nitrogen 11 7-18 MG/DL Creatinine 0.76 0.60-1.30 MG/DL Estimat Glomerular Filtration Rate > 60 BUN/Creatinine Ratio 14 Glucose Level 126 H 70-105 MG/DL Calcium Level 8.6 8.5-10.1 MG/DL Phosphorus Level 3.8 2.3-4.7 MG/DL Magnesium Level 1.4 L 1.8-2.4 MG/DL Laboratory Tests 04/23/17 03:51 abdomen is gravid nontender. Extremities show no clubbing or cyanosis. There is no Homans sign. Assessment and plan severe hypertension at just under 25 weeks gestation. Blood pressures are remaining somewhat labile but are improving under Dr. Rubio. Management of the blood pressures deferred to Dr. Rubio. Patient reports that her fingerstick blood sugars and 2 hours postprandial have all been under 120 and have generally been less than 105 or 100 which is well within the desired range. We will continue her metformin 500 mg 3 times a day. Patient complains of some gastritis/peptic ulcer symptoms will ahead and add Prilosec to take when necessary. Plan Tylenol for headaches. Patient complains of occasional nausea we will add oral Zofran as well. Otherwise continue current management with medical management per Dr. Clement. continue with daily NST. we'll consider for discharge home when Dr. Rubio has established satisfactory blood pressure control. April 24, 2017 Late entry - patient seen this AM current time 11:47. Pt without c/o. WELSH decreased. No N/V, no ctx. Ambulating some - voiding well. Vital Signs Date Time Temp Pulse Resp B/P (MAP) Pulse Ox O2 Delivery O2 Flow Rate FiO2 04/24/17 10:00 57 15 143/86 98 Room Air 04/24/17 09:00 59 19 149/92 98 Room Air 04/24/17 08:00 73 24 132/79 98 Room Air 04/24/17 08:00 Room Air 04/24/17 07:00 72 23 153/91 98 Room Air 04/24/17 07:00 72 04/24/17 06:00 62 17 169/87 97 Room Air 04/24/17 05:00 60 10 132/74 97 Room Air 04/24/17 04:00 60 18 153/93 96 Room Air 04/24/17 04:00 99.4 04/24/17 04:00 Room Air 04/24/17 03:00 62 16 161/95 95 Room Air 04/24/17 02:00 62 14 155/91 94 Room Air 04/24/17 01:00 60 04/24/17 01:00 59 14 155/91 95 Room Air 04/24/17 00:00 Room Air 04/24/17 00:00 99.5 04/24/17 00:00 63 17 129/67 96 Room Air 04/23/17 23:00 71 16 156/85 96 Room Air 04/23/17 22:00 80 30 131/72 96 Room Air 04/23/17 21:00 64 19 146/84 Room Air 04/23/17 20:00 Room Air 04/23/17 20:00 68 16 125/75 Room Air 04/23/17 20:00 97.4 04/23/17 19:00 75 12 132/77 Room Air 04/23/17 19:00 71 04/23/17 18:00 72 13 150/90 98 Room Air 04/23/17 17:00 73 18 163/94 96 Room Air 04/23/17 16:00 Room Air 04/23/17 16:00 55 16 171/92 97 Room Air 04/23/17 15:00 58 15 136/83 97 Room Air 04/23/17 14:00 69 18 155/85 97 Room Air 04/23/17 13:00 73 20 136/74 97 Room Air 04/23/17 13:00 74 04/23/17 12:55 98.1 04/23/17 12:00 Room Air I & O 04/24/17 07:00 Intake Total 1400 ml Balance 1400 ml BP improved with meds. Abd B-9 non tender/ gravid Ext b-9 A/P HD number 3 with severe HTN improved now with meds. Plan f-up with HROB after discharge. Continue current care - plan discharge at Dr. Rubio's discretion. CHERELLE SCRUGGS MD Apr 24, 2017 11:48
--- NOTE | 2017-04-24 11:50 | Cardiology Progress Note ---
Cardiology SOAP Progress Note Subjective: no cardiac complaints Objective: I&O/Vital Signs Vital Sign - Last 12Hours 04/24/17 04/24/17 04/24/17 04/24/17 00:00 00:00 00:00 01:00 Temp 99.5 Pulse 63 59 Resp 17 14 B/P (MAP) 129/67 155/91 Pulse Ox 96 95 O2 Delivery Room Air Room Air Room Air 04/24/17 04/24/17 04/24/17 04/24/17 01:00 02:00 03:00 04:00 Pulse 60 62 62 Resp 14 16 B/P (MAP) 155/91 161/95 Pulse Ox 94 95 O2 Delivery Room Air Room Air Room Air 04/24/17 04/24/17 04/24/17 04/24/17 04:00 04:00 05:00 06:00 Temp 99.4 Pulse 60 60 62 Resp 18 10 17 B/P (MAP) 153/93 132/74 169/87 Pulse Ox 96 97 97 O2 Delivery Room Air Room Air Room Air 04/24/17 04/24/17 04/24/17 04/24/17 07:00 07:00 08:00 08:00 Pulse 72 72 73 Resp 23 24 B/P (MAP) 153/91 132/79 Pulse Ox 98 98 O2 Delivery Room Air Room Air Room Air 04/24/17 04/24/17 09:00 10:00 Pulse 59 57 Resp 19 15 B/P (MAP) 149/92 143/86 Pulse Ox 98 98 O2 Delivery Room Air Room Air Intake and Output 04/24/17 00:00 Intake Total 960 ml Balance 960 ml Weight (Pounds): 282 Weight (Ounces): 4.0 Weight (Calculated Kilograms): [id number] Constitutional: No appears stated age, No AAO x 3, No apparent distress, No PERRL, No well-developed, No well-nourished, No other Respiratory: No accessory muscle use, No respiratory distress, No chest tender , No chest expansion is symmetric, No chest is bilaterally symmetric, No lungs clear to percussion, No lungs clear to auscultation, No crackles, No rhonchi, No rales, No stridor, No wheezing, No pleural rub, No other Cardiovascular: No regular rate-rhythm, No irregularly irregular, No extra beats, No parasternal heave is noted, No JVD, No edema, No bradycardia, No tachycardia, No point of maximal impulse, No cardiac thrills are palpable, No S1 and S2, No gallop/S3, No gallop/S4, No diastolic murmur, No systolic murmur, No friction rub, No click, No other Gastrointestional: No tender, No soft, No round, No distended, No pulsatile mass, No organomegaly, No guarding, No rebound, No tenderness, No hernia, No mass, No audible bowel sounds, No abnormal bowel sounds, No abdominal bruits, No spleenomegaly, No other Extremities: No clubbing, No cyanosis, No significant edema Neurologic/Psychiatric: alert, oriented x 3, power is 5/5 both on sides Skin: No normal color, No warm/dry, No cyanosis, No cool, No diaphoresis, No damp, No ecchymosis, No jaundice, No mottled, No pallor, No rash, No tattoos/ piercings, No ulcerations, No rash on exposed areas, No ulcerations on exposed areas, No other Results/Procedures: Labs Laboratory Tests 04/24/17 04:22: White Blood Count 14.0H, Red Blood Count 4.37, Hemoglobin 10.4L, Hematocrit 32L , Mean Corpuscular Volume 74L, Mean Corpuscular Hemoglobin 24L, Mean Corpuscular Hemoglobin Concent 32, Red Cell Distribution Width 18.4H, Platelet Count 448H, Mean Platelet Volume 11.0H, Neutrophils (%) (Auto) 75, Lymphocytes ( %) (Auto) 17, Monocytes (%) (Auto) 7, Eosinophils (%) (Auto) 1, Basophils (%) ( Auto) 0, Neutrophils # (Auto) 10.5H, Lymphocytes # (Auto) 2.4, Monocytes # (Auto ) 0.9, Eosinophils # (Auto) 0.2, Basophils # (Auto) 0.0, Sodium Level 135, Potassium Level 3.9, Chloride Level 107, Carbon Dioxide Level 17L, Anion Gap 11 , Blood Urea Nitrogen 11, Creatinine 0.73, Estimat Glomerular Filtration Rate > 60, BUN/Creatinine Ratio 15, Glucose Level 81, Calcium Level 8.6, Phosphorus Level 4.4, Magnesium Level 1.7L A/P: Assessment/Dx: Severe hypertension, Plan: we are trying to manage her BP with oral regimen. once her BP is consistently within acceptable parameters, she can go home. Currently she is on labetolol 400mg tid and nifedipine extended release 120mg once daily. Her BP since last night has been systolic between 140-160. Thank you for your consultation. Please call me if you have any questions. Hermann Rubio MD, FACP, FACC, FSCAI, FHRS, CCDS Interventional Cardiology Cardiac Electrophysiology Vascular Medicine and Endovascular Interventions Vipul RUBIO MD Apr 24, 2017 11:50
[2017-04-24] MEDS ORDERED: LABETALOL 200 MG (NORMODYNE) TAB PO SCH (13:00)
--- NOTE | 2017-04-24 16:40 | Progress Note-Standard ---
Standard Progress Note Progress Notes/Assess & Plan Date Seen by Provider: Apr 24, 2017 Time Seen by Provider: 16:38 Progress/Assessment & Plan patient is without complaint. Her headache is improved with her blood pressures decreased. She denies nausea. Denies shortness of breath. Patient reports feeling baby moving and denies contractions. She denies ruptured membranes or bleeding. Vital Signs Date Time Temp Pulse Resp B/P (MAP) Pulse Ox O2 Delivery O2 Flow Rate FiO2 04/23/17 06:00 71 12 156/89 98 Room Air 04/23/17 05:00 65 19 172/92 97 Room Air 04/23/17 04:00 98.9 04/23/17 04:00 Room Air 04/23/17 04:00 76 20 147/87 97 Room Air 04/23/17 03:00 79 10 166/90 98 Room Air 04/23/17 02:00 60 21 144/75 97 Room Air 04/23/17 01:00 66 04/23/17 01:00 74 17 163/91 99 Room Air 04/23/17 00:00 74 14 145/88 98 04/23/17 00:00 Room Air 04/22/17 23:00 89 10 155/79 98 04/22/17 22:00 73 13 168/99 98 Room Air 04/22/17 21:45 77 24 159/88 98 Room Air 04/22/17 21:30 59 17 196/108 99 Room Air 04/22/17 21:15 62 11 202/107 98 Room Air 04/22/17 21:00 57 19 205/102 99 Room Air 04/22/17 20:45 58 10 201/104 99 Room Air 04/22/17 20:30 62 17 215/113 99 Room Air 04/22/17 20:15 56 8 213/108 100 Room Air 04/22/17 20:00 59 11 210/107 99 Room Air 04/22/17 20:00 Room Air 04/22/17 19:45 51 17 208/104 99 Room Air 04/22/17 19:17 18 217/100 Room Air 04/22/17 18:56 18 230/106 Room Air 04/22/17 18:40 18 215/102 Room Air 04/22/17 17:50 98.6 63 18 214/98 Room Air I & O 04/23/17 07:00 Intake Total 1400 ml Output Total 5 ml Balance 1395 ml pressures are still a bit labile but markedly improved. Abdomen is gravid soft nontender. Extremities show no clubbing or cyanosis. There is some pretibial pitting edema. There is no Homans sign. assessment and plan 24-6/7 weeks' gestation with severe hypertension - pressures are improving with the current care. No specific obstetric problems at this time. continue current management April 23, 2017 Patient complains of persistent but somewhat episodic headache. She denies ruptured membranes or bleeding. Complains of episodic gastritis/heartburn. She denies contractions. She expresses concern about having her blood pressure get to low with the medication she is being given. We had a lengthy discussion regarding blood pressure management the patient now does understand that the medication she received now in the form of labetalol is expected to have a control and affect her blood pressure over the next 6-8 hours rather than an immediate impact. She has received other medications during this hospitalization for a more prompt/immediate. When her blood pressures are in a more acceptable range as in the 140s to 160s over 90 to 110 she is not receiving the immediate acting blood pressure medicines. She still needs to maintain compliance with her ongoing daily antihypertensive medication in order to gain adequate control of her blood pressure. Again we discussed this issue at some length and in some detail. Vital Signs Date Time Temp Pulse Resp B/P (MAP) Pulse Ox O2 Delivery O2 Flow Rate FiO2 04/23/17 23:00 71 16 156/85 96 Room Air 04/23/17 22:00 80 30 131/72 96 Room Air 04/23/17 21:00 64 19 146/84 Room Air 04/23/17 20:00 Room Air 04/23/17 20:00 68 16 125/75 Room Air 04/23/17 19:00 75 12 132/77 Room Air 04/23/17 19:00 71 04/23/17 18:00 72 13 150/90 98 Room Air 04/23/17 17:00 73 18 163/94 96 Room Air 04/23/17 16:00 Room Air 04/23/17 16:00 55 16 171/92 97 Room Air 04/23/17 15:00 58 15 136/83 97 Room Air 04/23/17 14:00 69 18 155/85 97 Room Air 04/23/17 13:00 73 20 136/74 97 Room Air 04/23/17 13:00 74 04/23/17 12:55 98.1 04/23/17 12:00 Room Air 04/23/17 11:00 61 12 168/89 98 Room Air 04/23/17 10:00 63 7 190/109 99 Room Air 04/23/17 09:00 62 19 177/112 97 Room Air 04/23/17 08:00 64 11 147/81 98 Room Air 04/23/17 08:00 Room Air 04/23/17 08:00 97.6 04/23/17 07:00 63 20 155/86 96 Room Air 04/23/17 07:00 68 04/23/17 06:00 71 12 156/89 98 Room Air 04/23/17 05:00 65 19 172/92 97 Room Air 04/23/17 04:00 98.9 04/23/17 04:00 Room Air 04/23/17 04:00 76 20 147/87 97 Room Air 04/23/17 03:00 79 10 166/90 98 Room Air 04/23/17 02:00 60 21 144/75 97 Room Air 04/23/17 01:00 66 04/23/17 01:00 74 17 163/91 99 Room Air 04/23/17 00:00 74 14 145/88 98 04/23/17 00:00 Room Air I & O 04/23/17 07:00 Intake Total 1400 ml Output Total 5 ml Balance 1395 ml Blood pressures remained somewhat widely labile. otherwise vitals are reassuring Laboratory Tests Test 04/23/17 03:51 Range/Units White Blood Count 12.5 H 4.3-11.0 10^3/uL Red Blood Count 4.72 4.35-5.85 10^6/uL Hemoglobin 11.2 L 11.5-16.0 G/DL Hematocrit 35 35-52 % Mean Corpuscular Volume 74 L 80-99 FL Mean Corpuscular Hemoglobin 24 L 25-34 PG Mean Corpuscular Hemoglobin Concent 32 32-36 G/DL Red Cell Distribution Width 18.3 H 10.0-14.5 % Platelet Count 449 H 130-400 10^3/uL Mean Platelet Volume 10.8 H 7.4-10.4 FL Neutrophils (%) (Auto) 74 42-75 % Lymphocytes (%) (Auto) 20 12-44 % Monocytes (%) (Auto) 5 0-12 % Eosinophils (%) (Auto) 1 0-10 % Basophils (%) (Auto) 1 0-10 % Neutrophils # (Auto) 9.2 H 1.8-7.8 X 10^3 Lymphocytes # (Auto) 2.5 1.0-4.0 X 10^3 Monocytes # (Auto) 0.7 0.0-1.0 X 10^3 Eosinophils # (Auto) 0.1 0.0-0.3 10^3/uL Basophils # (Auto) 0.1 0.0-0.1 10^3/uL Sodium Level 133 L 135-145 MMOL/L Potassium Level 3.9 3.6-5.0 MMOL/L Chloride Level 104 98-107 MMOL/L Carbon Dioxide Level 15 L 21-32 MMOL/L Anion Gap 14 5-14 MMOL/L Blood Urea Nitrogen 11 7-18 MG/DL Creatinine 0.76 0.60-1.30 MG/DL Estimat Glomerular Filtration Rate > 60 BUN/Creatinine Ratio 14 Glucose Level 126 H 70-105 MG/DL Calcium Level 8.6 8.5-10.1 MG/DL Phosphorus Level 3.8 2.3-4.7 MG/DL Magnesium Level 1.4 L 1.8-2.4 MG/DL Laboratory Tests 04/23/17 03:51 abdomen is gravid nontender. Extremities show no clubbing or cyanosis. There is no Homans sign. Assessment and plan severe hypertension at just under 25 weeks gestation. Blood pressures are remaining somewhat labile but are improving under Dr. Rubio. Management of the blood pressures deferred to Dr. Rubio. Patient reports that her fingerstick blood sugars and 2 hours postprandial have all been under 120 and have generally been less than 105 or 100 which is well within the desired range. We will continue her metformin 500 mg 3 times a day. Patient complains of some gastritis/peptic ulcer symptoms will ahead and add Prilosec to take when necessary. Plan Tylenol for headaches. Patient complains of occasional nausea we will add oral Zofran as well. Otherwise continue current management with medical management per Dr. Clement. continue with daily NST. we'll consider for discharge home when Dr. Rubio has established satisfactory blood pressure control. April 24, 2017 Late entry - patient seen this AM current time 11:47. Pt without c/o. WELSH decreased. No N/V, no ctx. Ambulating some - voiding well. Vital Signs Date Time Temp Pulse Resp B/P (MAP) Pulse Ox O2 Delivery O2 Flow Rate FiO2 04/24/17 10:00 57 15 143/86 98 Room Air 04/24/17 09:00 59 19 149/92 98 Room Air 04/24/17 08:00 73 24 132/79 98 Room Air 04/24/17 08:00 Room Air 04/24/17 07:00 72 23 153/91 98 Room Air 04/24/17 07:00 72 04/24/17 06:00 62 17 169/87 97 Room Air 04/24/17 05:00 60 10 132/74 97 Room Air 04/24/17 04:00 60 18 153/93 96 Room Air 04/24/17 04:00 99.4 04/24/17 04:00 Room Air 04/24/17 03:00 62 16 161/95 95 Room Air 04/24/17 02:00 62 14 155/91 94 Room Air 04/24/17 01:00 60 04/24/17 01:00 59 14 155/91 95 Room Air 04/24/17 00:00 Room Air 04/24/17 00:00 99.5 04/24/17 00:00 63 17 129/67 96 Room Air 04/23/17 23:00 71 16 156/85 96 Room Air 04/23/17 22:00 80 30 131/72 96 Room Air 04/23/17 21:00 64 19 146/84 Room Air 04/23/17 20:00 Room Air 04/23/17 20:00 68 16 125/75 Room Air 04/23/17 20:00 97.4 04/23/17 19:00 75 12 132/77 Room Air 04/23/17 19:00 71 04/23/17 18:00 72 13 150/90 98 Room Air 04/23/17 17:00 73 18 163/94 96 Room Air 04/23/17 16:00 Room Air 04/23/17 16:00 55 16 171/92 97 Room Air 04/23/17 15:00 58 15 136/83 97 Room Air 04/23/17 14:00 69 18 155/85 97 Room Air 04/23/17 13:00 73 20 136/74 97 Room Air 04/23/17 13:00 74 04/23/17 12:55 98.1 04/23/17 12:00 Room Air I & O 04/24/17 07:00 Intake Total 1400 ml Balance 1400 ml BP improved with meds. Abd B-9 non tender/ gravid Ext b-9 A/P HD number 3 with severe HTN improved now with meds. Plan f-up with HROB after discharge. Continue current care - plan discharge at Dr. Rubio's discretion. April 24, 2017 1638 Patient is without complaint. She feels improved. Her headache has resolved. Vital Signs Date Time Temp Pulse Resp B/P (MAP) Pulse Ox O2 Delivery O2 Flow Rate FiO2 04/24/17 16:05 97.9 73 16 130/75 97 Room Air 04/24/17 16:00 Room Air 04/24/17 16:00 65 11 130/75 97 Room Air 04/24/17 15:00 66 11 124/75 97 Room Air 04/24/17 14:00 70 10 131/85 96 Room Air 04/24/17 13:00 74 04/24/17 13:00 74 13 116/83 97 Room Air 04/24/17 12:00 Room Air 04/24/17 12:00 97.8 65 23 114/71 95 Room Air 04/24/17 11:00 68 13 119/78 97 Room Air 04/24/17 10:00 57 15 143/86 98 Room Air 04/24/17 09:00 59 19 149/92 98 Room Air 04/24/17 08:30 98.1 68 19 98 Room Air 04/24/17 08:00 73 24 132/79 98 Room Air 04/24/17 08:00 Room Air 04/24/17 07:00 72 23 153/91 98 Room Air 04/24/17 07:00 72 04/24/17 06:00 62 17 169/87 97 Room Air 04/24/17 05:00 60 10 132/74 97 Room Air 04/24/17 04:00 60 18 153/93 96 Room Air 04/24/17 04:00 99.4 04/24/17 04:00 Room Air 04/24/17 03:00 62 16 161/95 95 Room Air 04/24/17 02:00 62 14 155/91 94 Room Air 04/24/17 01:00 60 04/24/17 01:00 59 14 155/91 95 Room Air 04/24/17 00:00 Room Air 04/24/17 00:00 99.5 04/24/17 00:00 63 17 129/67 96 Room Air 04/23/17 23:00 71 16 156/85 96 Room Air 04/23/17 22:00 80 30 131/72 96 Room Air 04/23/17 21:00 64 19 146/84 Room Air 04/23/17 20:00 Room Air 04/23/17 20:00 68 16 125/75 Room Air 04/23/17 20:00 97.4 04/23/17 19:00 75 12 132/77 Room Air 04/23/17 19:00 71 04/23/17 18:00 72 13 150/90 98 Room Air 04/23/17 17:00 73 18 163/94 96 Room Air I & O 04/24/17 07:00 Intake Total 1400 ml Balance 1400 ml Blood pressures have been significantly improved. Almost 12 hours since the last blood pressure in the 160s Physical exam is unchanged. Patient is having an NST Assessment and plan as above NST is equivocal at this point. We will go ahead and get a biophysical profile. Patient can be discharged home whenever it is okay with cardiology. We'll see her back in my clinic in 1 week. Final Diagnosis severe hypertension in CHERELLE SCRUGGS MD Apr 24, 2017 16:40
[2017-04-24] MEDS ORDERED: FAMO20TA5 PO (16:42)
[2017-04-24] MEDS ORDERED: ASPI-999 PO (16:42)
--- NOTE | 2017-04-24 16:43 | Discharge Instructions ---
Discharge Instructions Discharge Medications New, Converted or Re-Newed RX: Call to Patients Pharmacy Patient Instructions Patient Instructions: as directed Return to [facility] For: as directed Activity & Diet Discharge Diet: No Restrictions Activity as Tolerated: Yes Orders-Post D/C & Referrals return to clinic with me in 1 week. In the clinic when necessary for any signs symptoms and indications elevated blood pressure labor or other problems Please call in rx to patient pharmacy CHERELLE SCRUGGS MD Apr 24, 2017 16:43
[2017-04-24] MEDS ORDERED: LABE200T3 PO (17:38)
[2017-04-24] MEDS ORDERED: NIFE60TA64 PO (17:38)
--- NOTE | 2017-04-24 17:59 | Diagnostic Imaging Report ---
INDICATION: Size and date discrepancy. TECHNIQUE: Multiple real-time grayscale images were obtained over the gravid uterus. COMPARISON: None. FINDINGS: There is a single live intrauterine in cephalic presentation. The placenta is anterior, grade 2, with no evidence of placenta previa. heart rate of 144 bpm. The kidneys, bladder, stomach, ventricles, spine and cord insertion are normal. The heart and cord are not well seen due to lie. Anatomic measurements correspond to a 20 week, 6 day gestation. IMPRESSION: Single live intrauterine with anatomic measurements corresponding to a 20 week, 6 day gestation. Biometrical measurements are as follows: Biparietal 5.61 cm, age 23 weeks 1 days. Head circumference 21.42 cm, age 23 weeks 4 days. Abdominal circumference 20.25 cm, age 25 weeks 0 days. Femur length 4.25 cm, age 24 weeks 0 days. Sonographic estimate age: 24 weeks 0 days. Sonographic estimated date of delivery: 08/14/2017. Estimated Weight: 679 gm (+/- 99 gm). LMP percentile: 14%. heart rate: 139 beats per minute. number: 1 of 1. Dictated by: Dictated on workstation # [id number]
--- NOTE | 2017-04-25 07:31 | Discharge Summary ---
Discharge Summary severe hypertension this patient is a 41-year-old white female currently at 25 weeks gestation. She was admitted with severe/uncontrolled hypertension. Had been some compliance issues with her antihypertensive medications. She had no specific obstetric problems. She is diabetic and has attained good control of blood sugars with metformin after a period of noncompliance with that medication well. cardiology/Dr. Rubio was consult. Patient was transferred to the ICU for emergent blood pressure control management. Under Dr. Rubio's care of the patient blood pressure was eventually brought under control. Hospital day 2 the blood pressures continued to be relatively labile and somewhat improved. Patient again had an episode during this hospitalization of noncompliance with prescribed medication. After lengthy discussion regarding mechanism of action transfer the medications IV compliance with her medication regimen patient began to take her medication as prescribed and her blood pressures had begun now to significantly improved. On hospital day 3 the patient blood pressure did come down to a relatively acceptable range. Although still somewhat elevated. Patient continued on medication regimen prescribed by the yard jockey and bleeding labetalol and Procardia.. Blood sugars remained in good control with her metformin. Decision was made to allow discharge home on April 24, 2017. principal diagnoses this hospitalization is severe controlled hypertension Secondary diagnoses are 25 week , morbid obesity, gestational diabetes , medical noncompliance Operation procedures include IV fluids, IV antihypertensives, cardiology consult , NST, biophysical profile Patient was given appropriate discharge instructions verbally and in writing. Copy those are placed in her chart. Discharge medications include vitamins, labetalol, Procardia, metformin CHERELLE SCRUGGS MD Apr 25, 2017 07:31
--- OUTSIDE RECORDS SUMMARY | 2017-04-30 20:45 | XMS REPORT | Clinical Summary ---
Author Author [facility] Organization [facility] Address Unknown Phone Unavailable Care Team Providers Care Sewing Teacher Name Role Phone PCP Unavailable Source Comments Some departments are not documenting in the electronic medical record. If you do not see the information that you expected, contact Release of Information in the Health Information Management department at [phone] for further assistance in locating additional records.[facility] Allergies Active Allergy Reactions Severity Noted Date Comments Acetaminophen-Codeine HEADACHE Low 07/16/2016 Current Medications Prescription Sig. Disp. Refills Start End Date Status Date CYCLOBENZAPRINE HCL Take 10 mg by mouth. Active (FLEXERIL PO) Active Problems Problem Noted Date Late effect of fracture of lower extremity 07/17/2016 Social History Tobacco Use Types Packs/Day Years Used Date Never Smoker Smokeless Tobacco: Never Used Tobacco Cessation: Counseling Given: Yes Alcohol Use Drinks/Week oz/Week Comments No Sex Assigned at Date Recorded Not on file Last Filed Vital Signs Vital Sign Reading Time Taken Blood Pressure - - Pulse - - Temperature - - Respiratory Rate - - Oxygen Saturation - - Inhaled Oxygen - - Concentration Weight 122.5 kg (270 lb) 07/16/2016 1:57 PM CDT Height 182.9 cm (6') 07/16/2016 1:57 PM CDT Body Mass Index 36.62 07/16/2016 1:57 PM CDT Plan of Treatment Health Maintenance Due Date Last Done Comments PHYSICAL (COMPREHENSIVE) 1984 EXAM PERTUSSIS VACCINE 1988 TETANUS VACCINE 1994 CERVICAL CANCER SCREENING 2007 INFLUENZA VACCINE 06/06/2017 Results Not on filefrom Last 3 Months
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
== END 2017-04-24 18:15 | disposition home or self-care (01) | DRG 781 ==
LOC: LDRP 17:44 → WSo 17:44 → ICU 18:59
PROVIDERS: ADMIT Internal Medicine Interventional Cardiology; ATTEND Internal Medicine Interventional Cardiology
DX: O10.912 Unspecified pre-existing hypertension complicating pregnancy, second trimester (principal); O24.415 Gestational diabetes mellitus in pregnancy, controlled by oral hypoglycemic drugs; Z79.84 Long term (current) use of oral hypoglycemic drugs; Z3A.24 24 weeks gestation of pregnancy; Z91.14 Patient's other noncompliance with medication regimen; O99.212 Obesity complicating pregnancy, second trimester; E66.01 Morbid (severe) obesity due to excess calories; Z68.38 Body mass index [BMI] 38.0-38.9, adult
CPT/HCPCS: 36415; 76805; 76819; 80048; 80053; 82570; 83615; 83735; 84100; 84156; 84550; 85025

== ENCOUNTER → 2017-05-01 | Outpatient (CLI) | payer MEDICAID ==
[~2017-05-01] MED LIST changes: +ASPI-999 PO; +FAMO20TA5 PO; +LABE100T2 PO; +LABE200T3 PO; +NIFE60TA64 PO
[2017-05-01 11:30] LABS: PROTEIN/CREATININE RATIO 0.18
== END ==
LOC: LABNPT 11:12
PROVIDERS: ATTEND Obstetrics & Gynecology
DX: O28.8 Other abnormal findings on antenatal screening of mother (principal); Z3A.00 Weeks of gestation of pregnancy not specified
CPT/HCPCS: 82570; 84156

== ENCOUNTER 2018-01-01 15:51 | Outpatient (RCR) | payer MEDICAID ==
[~2018-01-01 15:51] MED LIST changes: -METF500T4 PO; +METF500T5 PO
[2018-01-01] MEDS ORDERED: FERRIC CARBOXYMALTOSE (CANCER) 750 MG in NS (IVPB) CANCER CENTER 250 ML IV SCH (16:15)
[2018-01-01] MEDS ORDERED: methylPREDNISolone 125 MG/2 ML (SOLU-MEDROL) CANCER CTR ONE (16:38)
[2018-01-01] MEDS ORDERED: METHYLPREDNISOLONE 40 MG/ML IV ONE (16:41)
== END 2018-03-19 11:59 | disposition home or self-care (01) ==
LOC: ONC 15:51
PROVIDERS: ATTEND Internal Medicine Hematology & Oncology
DX: D47.3 Essential (hemorrhagic) thrombocythemia (principal); D50.9 Iron deficiency anemia, unspecified; E11.9 Type 2 diabetes mellitus without complications; I10 Essential (primary) hypertension; R07.9 Chest pain, unspecified; Z79.82 Long term (current) use of aspirin; Z79.84 Long term (current) use of oral hypoglycemic drugs; Z79.899 Other long term (current) drug therapy
CPT/HCPCS: 36415; 82728; 83540; 96365; 96375; 99214